=== PATIENT | female | born 1985 | race Caucasian/White ===

== ENCOUNTER 2016-03-22 19:01 | Emergency (ER) | payer OTHER ==
[~2016-03-22] VITALS: Ht 165.1 cm; Wt 60.0 kg
[2016-03-22 19:12] VITALS: TEMP 36.5; Ht 165.1 cm; Wt 60.0 kg
[2016-03-22] MEDS ORDERED: SODIUM CHLORIDE 0.9% 1000ML 1,000 ML IV STA (19:23)
[2016-03-22] MEDS ORDERED: SODIUM CHLORIDE 0.9% 1000ML 1,000 ML IV ONE (19:23)
[2016-03-22] MEDS ORDERED: OPTIRAY 320 IV PRN (19:30)
--- NOTE | 2016-03-22 19:53 | DIAGNOSTIC IMAGING REPORT ---
CHEST ONE VIEW PORTABLE HISTORY: Atypical CHEST PAIN COMPARISON: None. FINDINGS: The lungs are clear. Cardiac silhouette is normal in size. No pleural effusions. No pneumothorax. IMPRESSION: No acute process. Electronically signed by: Raymundo Gay M.D. 03/22/2016 7:51 PM
[2016-03-22 19:54] LABS: ISTAT CREATININE 0.8 mg/dl (0.6-1.3); ISTAT HEMOGLOBIN 14.3 g/dl (12.0-16.0); ISTAT IONIZED CALCIUM 1.23 mmol/l (1.12-1.32)
[2016-03-22 20:30] LABS: PREG INTERNAL NEGATIVE QC NEG CLEAR BACKGROUND; PREG INTERNAL POSITIVE QC POS CONTROL LINE
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
[2016-03-22] MEDS ORDERED: KETOROLAC TROMETHAMINE 30 MG/ML VIAL IV STA (22:24)
[2016-03-22] MEDS ORDERED: XYLOCAINE 1%/SOD BICARB 20 ML VIAL INFIL ONE (22:30)
[2016-03-22] MEDS ORDERED: OXYC1TAB3 PO (23:26)
[2016-03-22] MEDS ORDERED: OXYCODONE IR HOME PACK PO ONE (23:30)
[2016-03-22 23:40] VITALS: BP 143/82; PULSE 97; O2SAT 100
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
== END 2016-03-23 00:06 | disposition home or self-care (01) ==
LOC: C.EDC 19:04
DX: S20.219A Contusion of unspecified front wall of thorax, initial encounter (principal); S41.112A Laceration without foreign body of left upper arm, initial encounter; R91.1 Solitary pulmonary nodule; N83.202 Unspecified ovarian cyst, left side; V49.50XA Passenger injured in collision with unspecified motor vehicles in traffic accident, initial encounter; Y93.89 Activity, other specified; Y92.411 Interstate highway as the place of occurrence of the external cause; Y99.8 Other external cause status